=== PATIENT | male | born 1975 | race Caucasian/White ===

== ENCOUNTER 2017-08-29 07:16 | Emergency (ER) | payer SELFPAY ==
[~2017-08-29] VITALS: Ht 172.7 cm; Wt 76.0 kg
[2017-08-29 07:24] VITALS: BP 147/88
== END 2017-08-29 08:25 | disposition left against medical advice (07) ==
LOC: ER 07:51
DX: F43.9 Reaction to severe stress, unspecified (principal)

== ENCOUNTER 2017-08-29 18:44 | Emergency (ER) | payer SELFPAY ==
[~2017-08-29] VITALS: Ht 175.3 cm; Wt 70.0 kg
[2017-08-29 19:40] LABS: HEMOGLOBIN. 14.6 g/dL (14.0-18.0); MEAN CORPUSCULAR HEMOGLOBIN 29.2 pg (28.0-32.0); MEAN CORPUSCULAR VOLUME 85.6 fL (80.0-94.0); MEAN PLATELET VOLUME 6.6 fl (7.4-10.4); PLATELET 407 x1000/uL (130-400); RED BLOOD CELL COUNT 5.02 mill/uL (4.7-6.1); RED CELL DISTRIBUTION WIDTH 13.3 % (11.6-14.6)
[2017-08-29 19:43] LABS: CHLORIDE 94 mEq/L (98-107)
[2017-08-29 19:47] LABS: ETHANOL BLOOD < 10 mg/dL
[2017-08-29 20:06] LABS: PLATELET ESTIMATE INCREASED
[2017-08-30] MEDS ORDERED: LIDOCAINE HCL/EPINEPHRINE 1%-EPI 1:100,000 30 ML VIAL INFIL ONE
[2017-08-30] MEDS ORDERED: CEFAZOLIN 1000MG PREMIX 50 ML IV ONE
[2017-08-30] MEDS ORDERED: TETANUS, DIPHTHERIA, PERTUSSIS VAC/PF 0.5ML (>7YR OLD) IM ONE
[2017-08-30 00:54] LABS: CLARITY URINE CLEAR (CLEAR); COLOR URINE YELLOW (YELLOW); KETONES URINE 3+ (NEGATIVE); LEUKOCYTE ESTERASE URINE NEGATIVE (NEGATIVE); NITRITE URINE NEGATIVE (NEGATIVE); OCCULT BLOOD URINE NEGATIVE (NEGATIVE); PH URINE 5.5 (4.5-8.0); PROTEIN URINE 1+ (NEGATIVE); SPECIFIC GRAVITY URINE 1.029 (1.005-1.030)
[2017-08-30 01:10] LABS: *AMPHETAMINES SCREEN URINE NEGATIVE (NEGATIVE); *BARBITURATES SCREEN URINE NEGATIVE (NEGATIVE); *BENZODIAZEPINES SCREEN URINE NEGATIVE (NEGATIVE); *COCAINE SCREEN URINE NEGATIVE (NEGATIVE); CANNABINOID URINE SCREEN PRESUMTIVE POSITIVE (NEGATIVE)
[2017-08-30 01:11] LABS: METHADONE URINE SCREEN NEGATIVE (NEGATIVE); OPIATES URINE SCREEN NEGATIVE (NEGATIVE); PHENCYCLIDINE URINE SCREEN NEGATIVE (NEGATIVE)
[2017-08-30 01:44] LABS: HEMATOCRIT 36.4 % (42.0-52.0); HEMOGLOBIN 12.9 g/dL (14.0-18.0); MEAN CORPUSCULAR HEMOGLOBIN 30.2 pg (28.0-32.0); MEAN CORPUSCULAR VOLUME 85.1 fL (80.0-94.0); PLATELET 325 x1000/uL (130-400); RED BLOOD CELL COUNT 4.28 mill/uL (4.7-6.1)
[2017-08-30] MEDS ORDERED: DIPHENHYDRAMINE 50MG/ML VIAL ONE (13:19)
[2017-08-30] MEDS ORDERED: LORAZEPAM 2MG/ML CPJ ONE (13:20)
[2017-08-30] MEDS ORDERED: HALOPERIDOL LACTATE 5MG/ML VIAL IM ONE ×2 (13:20→13:45)
[2017-08-30] MEDS ORDERED: DIPHENHYDRAMINE 50MG/ML VIAL IM ONE (13:45)
[2017-08-30] MEDS ORDERED: LORAZEPAM 2MG/ML CPJ IM ONE (13:45)
[2017-08-30 19:52] VITALS: BP 123/87
== END 2017-08-30 19:52 ==
LOC: ER 18:48
DX: S61.512A Laceration without foreign body of left wrist, initial encounter (principal); S60.811A Abrasion of right wrist, initial encounter; R45.851 Suicidal ideations; D72.829 Elevated white blood cell count, unspecified; F12.10 Cannabis abuse, uncomplicated; X78.8XXA Intentional self-harm by other sharp object, initial encounter; Y93.89 Activity, other specified; Y92.89 Other specified places as the place of occurrence of the external cause; Y99.8 Other external cause status
CPT/HCPCS: 12002; 36415; 70450; 71045; 72125; 80053; 80305; 80307; 80329; 81003; 85025; 85027; 90471; 90715; 96365; 96372; 99285; A4217; G0482; J0690; J1200; J1630; J2060; X7700; Z7610